=== PATIENT | male | born 1985 | race Caucasian/White ===

== ENCOUNTER 2021-03-29 07:35 | Emergency (ER) | payer BC, OTHER ==
[~2021-03-29] VITALS: Ht 185.4 cm; Wt 97.5 kg
[2021-03-29 07:42] VITALS: BP 148/90
[2021-03-29] MEDS ORDERED: OMEPRAZOLE40 MG PO (07:47)
[2021-03-29] MEDS ORDERED: SINGULAIR5 MG PO (07:47)
== END 2021-03-29 08:35 | disposition home or self-care (01) ==
LOC: ER 07:35
DX: S90.32XA Contusion of left foot, initial encounter (principal); F12.90 Cannabis use, unspecified, uncomplicated; K21.9 Gastro-esophageal reflux disease without esophagitis; Z79.899 Other long term (current) drug therapy; X58.XXXA Exposure to other specified factors, initial encounter; Y93.89 Activity, other specified; Y92.89 Other specified places as the place of occurrence of the external cause; Y99.8 Other external cause status